=== PATIENT | male | born 1955 | race Caucasian/White ===

== ENCOUNTER 2020-11-28 17:44 | Emergency (ER) | payer SELFPAY ==
[~2020-11-28] VITALS: Ht 182.9 cm; Wt 79.4 kg
[2020-11-29] MEDS ORDERED: LOSARTAN POTAS100 MG PO (04:47)
== END 2020-11-28 22:08 | disposition left against medical advice (07) ==
LOC: ED 17:44
DX: S01.81XA Laceration without foreign body of other part of head, initial encounter (principal); F10.10 Alcohol abuse, uncomplicated; W17.89XA Other fall from one level to another, initial encounter
CPT/HCPCS: 12013; 90471; 90714; 99283-25